=== PATIENT | female | born 1940 | race Caucasian/White ===

== ENCOUNTER 2016-10-26 11:59 | Outpatient (CLI) | payer MEDICARE | END 2016-10-26 12:00 | disposition home or self-care (01) | LOC: NAVSJIPCSP 11:59 | PROVIDERS: ATTEND Internal Medicine Rheumatology | DX: M35.3 Polymyalgia rheumatica (principal) | CPT/HCPCS: 36415; 85652; 86140 ==

== ENCOUNTER 2016-12-01 10:09 | Outpatient (CLI) | payer MEDICARE ==
[2016-12-01 12:36] LABS: #Basophils 0.1 thou/uL (0.0-0.2); #Eosinphils 0.2 thou/uL (0.0-0.7); #Lymphocytes 2.5 thou/uL (1.20-3.40); #Monocytes 0.5 thou/uL (0.11-0.59); #Neutrophils 2.1 thou/uL (1.40-6.50); %Basophils 1.3 % (0.0-1.0); %Eosinophils 4.6 % (0.0-10.0); %Monocytes 9.4 % (0.0-10.0); Red Blood Cell (RBC) Count 4.49 mill/uL (4.20-5.40); White Blood Cell (WBC) Count 5.4 thou/uL (4.8-10.8)
[2016-12-01 12:56] LABS: ALT (SGPT) 23 U/L (0-55); AST (SGOT) 21 U/L (5-34); Alkaline Phosphatase 64 U/L (40-150); Anion Gap 15 mmol/L (10-20); BUN (Urea Nitrogen) 13 mg/dL (9.8-20.1); Bilirubin, Total 0.5 mg/dL (0.2-1.2); Calc. Creatinine Clearance 0 mL/min (70-130); Calcium 9.5 mg/dL (7.8-10.44); Carbon Dioxide 29 mmol/L (23-31); Chloride 102 mmol/L (98-107); Estimated GFR-MDRD 84; Globulin 2.6 g/dL (2.4-3.5); Protein, Total 6.9 g/dL (5.8-8.1)
== END 2016-12-01 10:10 | disposition home or self-care (01) ==
LOC: NAVSJIPCSP 10:09
PROVIDERS: ATTEND Internal Medicine Rheumatology
DX: M35.3 Polymyalgia rheumatica (principal)
CPT/HCPCS: 36415; 80053; 85025; 85652; 86140

== ENCOUNTER 2017-01-12 12:21 | Outpatient (CLI) | payer MEDICARE | END 2017-01-12 12:22 | disposition home or self-care (01) | LOC: NAVSJIPCSP 12:21 | PROVIDERS: ATTEND Internal Medicine Rheumatology | DX: M35.3 Polymyalgia rheumatica (principal) | CPT/HCPCS: 36415; 85652; 86140 ==

== ENCOUNTER 2017-02-23 13:24 | Outpatient (CLI) | payer MEDICARE | END 2017-02-23 13:25 | disposition home or self-care (01) | LOC: NAVSJIPCSP 13:24 | PROVIDERS: ATTEND Internal Medicine Rheumatology | DX: M35.3 Polymyalgia rheumatica (principal) | CPT/HCPCS: 36415; 85652; 86140 ==

== ENCOUNTER 2017-04-25 14:57 | Outpatient (CLI) | payer MEDICARE | END 2017-04-25 14:58 | disposition home or self-care (01) | LOC: NAVSJIPCSP 14:57 | PROVIDERS: ATTEND Internal Medicine Rheumatology | DX: M35.3 Polymyalgia rheumatica (principal) | CPT/HCPCS: 85652; 86140 ==

== ENCOUNTER 2017-06-01 15:27 | Outpatient (CLI) | payer MEDICARE ==
--- NOTE | 2017-06-01 18:12 | ULT ---
THYROID ULTRASOUND: 06/01/17 COMPARISON: 03/14/16. HISTORY: Evaluate left thyroid mass. TECHNIQUE: Multiplanar glynn scale sonographic imaging of the thyroid gland obtained. FINDINGS: Thyroid isthmus measures 2 mm in AP dimension. Right lobe measures 1.0 x 3.7 x 1.0 cm. The left lobe measures 5.2 x 2.5 x 2.5 cm and contains a dom inant solid fairly homogeneous echogenic mass with internal areas of decreased echogenicity suggesti ng internal areas of cystic change. On this exam, the dominant left thyroid mass measures approximat daiana 4.2 x 2.2 x 2.8 cm, not significantly changed when compared to the 2016 exam. It may have slight ly grown when compared to 2014 at which time it measured in the 3.8 x 2.1 x 2.4 cm range. On the 201 3 study, it measured in the 3.9 x 2.4 x 1.9 cm range. IMPRESSION: Large predominantly solid mass involving the left lobe of the thyroid gland, not significantly anderson ed when compared to the most recent prior examination. Please see above discussion. POS: [facility]
== END 2017-06-01 15:28 | disposition home or self-care (01) ==
LOC: NAV ULT 15:27
PROVIDERS: ATTEND Internal Medicine
DX: E04.1 Nontoxic single thyroid nodule (principal); E07.89 Other specified disorders of thyroid
CPT/HCPCS: 76536

== ENCOUNTER 2017-06-08 14:18 | Outpatient (CLI) | payer MEDICARE | END 2017-06-08 14:19 | disposition home or self-care (01) | LOC: NAV LABSP 14:18 | PROVIDERS: ATTEND Internal Medicine | DX: M35.3 Polymyalgia rheumatica (principal) | CPT/HCPCS: 36415; 85652; 86140 ==

== ENCOUNTER 2017-06-15 09:42 | Outpatient (CLI) | payer MEDICARE ==
[2017-06-15 12:41] LABS: #Basophils 0.1 thou/uL (0.0-0.2); #Eosinphils 0.1 thou/uL (0.0-0.7); #Lymphocytes 1.8 thou/uL (1.20-3.40); #Monocytes 0.4 thou/uL (0.11-0.59); #Neutrophils 2.1 thou/uL (1.40-6.50); %Basophils 1.6 % (0.0-1.0); %Lymphocytes 39.4 % (21.0-51.0); %Monocytes 9.5 % (0.0-10.0); %Neutrophils 46.5 % (42.0-75.0); Hemoglobin 13.4 g/dL (12.0-16.0); Mean Corpuscular HGB CONC 32.4 g/dL (32.0-36.0); Mean Corpuscular Hemoglobin 30.3 pg (27.0-31.0); Mean Corpuscular Volume 93.3 fl (81.0-99.0); Platelet Count 254 thou/uL (130-400); RBC Distribution Width 11.3 % (11.5-14.5); Red Blood Cell (RBC) Count 4.42 mill/uL (4.20-5.40); White Blood Cell (WBC) Count 4.5 thou/uL (4.8-10.8)
[2017-06-15 12:49] LABS: Bilirubin Negative (Negative); Blood, Urine Negative (Negative); Clarity Clear (Clear); Glucose, Urine (Dipstick) Negative (Negative); Leukocyte Large (Negative); Nitrite Negative (Negative); Protein, Urine (Dipstick) Negative (Neg-Trace); Specific Gravity, Urine 1.015 (1.005-1.030); Urobilinogen 0.2 mg/dL (0.2-1.0)
[2017-06-15 13:12] LABS: ALT (SGPT) 17 U/L (8-55); AST (SGOT) 18 U/L (5-34); Albumin 4.3 g/dL (3.4-4.8); Alkaline Phosphatase 70 U/L (40-150); Anion Gap 13 mmol/L (10-20); BUN (Urea Nitrogen) 16 mg/dL (9.8-20.1); Bilirubin, Total 0.4 mg/dL (0.2-1.2); Calc. Creatinine Clearance 0 mL/min (70-130); Calcium 9.6 mg/dL (7.8-10.44); Carbon Dioxide 29 mmol/L (23-31); Cardiac Risk 2.3 (Less than 4.5); Chloride 104 mmol/L (98-107); Cholesterol 192 mg/dl (< 200 Desired); Estimated GFR-MDRD Greater than 90; Globulin 2.7 g/dL (2.4-3.5); Glucose 95 mg/dL (83-110); HDL Cholesterol 83 mg/dL (>60 Neg Risk); LDL Cholesterol, Calculated 93 mg/dL; Potassium 4.1 mmol/L (3.5-5.1); Sodium 142 mmol/L (136-145); Triglycerides 78 mg/dL (Less than 150)
[2017-06-15 13:22] LABS: Bacteria/HPF Rare-Few HPF (None Seen); RBC/HPF None Seen HPF (0-3); Squamous Epithelial 0-3 HPF (0-3)
== END 2017-06-15 09:43 | disposition home or self-care (01) ==
LOC: NAVSJIPCSP 09:42
PROVIDERS: ATTEND Internal Medicine
DX: E03.9 Hypothyroidism, unspecified (principal); E78.5 Hyperlipidemia, unspecified; M85.80 Other specified disorders of bone density and structure, unspecified site; I10 Essential (primary) hypertension
CPT/HCPCS: 36415; 80053; 80061; 81003; 81015; 84443; 85025

== ENCOUNTER 2023-12-01 16:10 | Outpatient (CLI) | payer MEDICARE | END 2023-12-01 16:11 | disposition home or self-care (01) | LOC: NAV RAD 16:10 | PROVIDERS: ATTEND Nurse Practitioner Family | DX: M47.22 Other spondylosis with radiculopathy, cervical region (principal) | CPT/HCPCS: 72050 ==

== ENCOUNTER 2024-07-14 15:50 | Emergency (ER) | payer MEDICARE ==
[~2024-07-14 15:50] MED LIST: Iopamidol 370 76% 100 ML VIAL ONE
[2024-07-14] MEDS ORDERED: Sodium Chloride 0.9% 1,000 ML ONE (16:14)
[2024-07-14] MEDS ORDERED: Ondansetron PF 4 MG/2 ML Vial ONE (16:14)
[2024-07-14 16:46] LABS: Hematocrit 36.1 % (36.0-47.0); Hemoglobin 12.2 g/dL (12.0-16.0); Mean Corpuscular HGB CONC 33.8 g/dL (32.0-36.0); Mean Corpuscular Volume 91.9 fl (78.0-98.0); Platelet Count 257 10x3/uL (130-400); RBC Distribution Width 11.4 % (11.5-14.5); Red Blood Cell (RBC) Count 3.93 mill/uL (4.20-5.40); White Blood Cell (WBC) Count 5.1 10x3/uL (4.8-10.8)
[2024-07-14 16:54] LABS: ALT (SGPT) 19 U/L (8-55); AST (SGOT) 25 U/L (5-34); Alkaline Phosphatase 62 U/L (40-110); Anion Gap 19 mmol/L (10-20); BUN (Urea Nitrogen) 24 mg/dL (9.8-20.1); Bilirubin, Total 0.4 mg/dL (0.2-1.2); Calc. Creatinine Clearance 0 mL/min (70-130); Calcium 8.9 mg/dL (7.8-10.44); Carbon Dioxide 20 mmol/L (23-31); Chloride 94 mmol/L (98-107); Estimated GFR 86; Globulin 2.8 g/dL (2.4-3.5); Glucose 154 mg/dL (83-110); Lipase 124 U/L (8-78); Potassium 3.8 mmol/L (3.5-5.1); Protein, Total 5.8 g/dL (5.8-8.1); Sodium 129 mmol/L (136-145)
[2024-07-14 16:57] LABS: MDiff Complete? YES
[2024-07-14 17:02] LABS: Band 16 % (5-11); Eosinophils 2 % (0-10); Lymphocytes 32 % (21-51); Monocytes 12 % (0-10); Neutrophil 37 % (42-75); Reactive Lymphocytes 1 % (0-10)
[2024-07-14 17:03] LABS: RBC Morph Comment Within Normal Limits
[2024-07-14 17:04] LABS: Platelet Adequacy Comment Appears Adequate; Toxic Granulation MODERATE; Vacuoles SLIGHT
== END 2024-07-14 18:21 | disposition home or self-care (01) ==
LOC: NAV ERS 15:50
DX: K52.9 Noninfective gastroenteritis and colitis, unspecified (principal); E86.0 Dehydration; I10 Essential (primary) hypertension; E03.9 Hypothyroidism, unspecified; E78.5 Hyperlipidemia, unspecified; Z79.899 Other long term (current) drug therapy
CPT/HCPCS: 74177; 80053; 83690; 85025; J2405; J7030; Q9967; 96374